=== PATIENT | female | born 1940 | race Caucasian/White ===

== ENCOUNTER 2022-10-26 07:08 | Inpatient (IN) | payer OTHER, MEDICAID ==
[~2022-10-26] VITALS: Ht 144.8 cm; Wt 75.3 kg
[2022-10-26] MEDS ORDERED: GLIP5TER PO (07:41)
[2022-10-26] MEDS ORDERED: MECL-303 PO (07:41)
[2022-10-26] MEDS ORDERED: ONDA8TAB87 PO (07:41)
[2022-10-26] MEDS ORDERED: SITA50TA3 PO (07:41)
[2022-10-26] MEDS ORDERED: CHOL2400 PO (07:41)
[2022-10-26] MEDS ORDERED: HYDR12.51 PO (07:41)
[2022-10-26 07:42] VITALS: BP 177/57
--- NOTE | 2022-10-26 07:42 | NUR ---
82 y/o female biba from home for c/o nausea and vomiting. Per son, patient has not been eating the past two days and patient throws up everything she eats. At assessment, patient was actively throwing up. Patient reports back pain from chronic back issues. Paramedics gave 4 mg PO Zofran ODT. Blood sugar on the field was 338. Patient reports dizziness. Medical History: HTN, DM NKDA
--- NOTE | 2022-10-26 07:45 | NUR ---
Med rec complete.
--- NOTE | 2022-10-26 07:51 | NUR ---
Patient being evaluated by physician at bedside.
[2022-10-26] MEDS ORDERED: NACL 0.9% 1,000 ML IV ONE (08:00)
[2022-10-26] MEDS ORDERED: KETOROLAC 15 MG/ML VIAL IVP ONE (08:00)
[2022-10-26] MEDS ORDERED: ONDANSETRON 4 MG/2 ML VIAL IVP ONE (08:00)
--- NOTE | 2022-10-26 08:12 | NUR ---
Lab at bedside.
--- NOTE | 2022-10-26 08:23 | NUR ---
Patient was taken to CT via rsan antonio.
--- NOTE | 2022-10-26 08:35 | NUR ---
Patient returned from CT.
[2022-10-26 08:57] LABS: BASOPHILS % (AUTO) 0.2 % (0.0-2.0); HEMOGLOBIN 12.2 g/dL (12.0-16.0); LYMPHOCYTES # (AUTO) 0.2 K/uL (2.5-16.5); LYMPHOCYTES % (AUTO) 2.3 % (20.5-51.1); MEAN CORPUSCULAR HEMOGLOBIN 26 pg (27-31); MEAN CORPUSCULAR HGB CONC 33 g/dL (33-37); MEAN CORPUSCULAR VOLUME 78.4 fL (80-94); MONOCYTES # (AUTO) 0.5 K/uL (0.8-1.0); MONOCYTES % (AUTO) 5.8 % (1.7-9.3); NEUTROPHILS # (AUTO) 8.2 K/uL (1.8-7.7); NEUTROPHILS % (AUTO) 91.7 % (42.2-75.2); PLATELET COUNT (AUTO) 112 K/uL (140-450); RED BLOOD CELL COUNT(AUTO) 4.72 MIL/uL (4.20-5.40); RED CELL DISTRIBUTION WIDTH 14.6 % (11.6-13.7); WHITE BLOOD COUNT (AUTO) 8.9 K/uL (4.8-10.8)
[2022-10-26 09:34] LABS: ALBUMIN 3.1 g/dL (3.4-5.0); ANION GAP 16.3 (8-16); ASPARTATE AMINOTRANSFERASE 54 U/L (15-37); CARBON DIOXIDE 27.1 mmol/L (21-32); CHLORIDE 96 mmol/L (98-107); CREATININE 1.3 mg/dL (0.6-1.3); GLUCOSE 332 mg/dL (74-106); LIPASE 55 U/L (73-393); POTASSIUM 3.4 mmol/L (3.5-5.1); SODIUM SERUM 136 mmol/L (136-145); TOTAL BILIRUBIN 0.7 mg/dL (0.0-1.0); UREA NITROGEN, BLOOD 30 mg/dL (7-18)
[2022-10-26 10:00] LABS: PROTHROMBIN TIME 11.5 secs (10.8-13.4)
--- NOTE | 2022-10-26 10:12 | NUR ---
Urine sample obtained, walked to lab.
[2022-10-26 10:14] LABS: APPEARANCE,URINE CLEAR (CLEAR); BILIRUBIN,URINE 1+ (NEGATIVE); BLOOD, URINE 1+ (NEGATIVE); COLOR,URINE YELLOW (YELLOW); LEUKOCYTE ESTERASE ,URINE 2+ (NEGATIVE); NITRITE, URINE POSITIVE (NEGATIVE); UGLUCOSE 1+ (NEGATIVE)
[2022-10-26] MEDS ORDERED: cefTRIAXone 1,000 MG VIAL ONE (10:28)
[2022-10-26] MEDS ORDERED: MAGNESIUM OXIDE 400 MG TAB PO PRN (11:10)
[2022-10-26] MEDS ORDERED: ONDANSETRON 4 MG/2 ML VIAL IVP PRN (11:10)
[2022-10-26] MEDS ORDERED: METOCLOPRAMIDE 10 MG/2 ML INJ VIAL IVP PRN (11:10)
[2022-10-26] MEDS ORDERED: ZOLPIDEM 5 MG TAB PO PRN (11:10)
[2022-10-26] MEDS ORDERED: KCL 20 MEQ IN 100 mL PREMIX 200 ML IV PRN (11:10)
[2022-10-26] MEDS ORDERED: LORazepam 1 MG TAB PO PRN (11:10)
[2022-10-26] MEDS ORDERED: HYDROcodone/APAP 5/325 MG 1 TAB TAB PO PRN (11:10)
[2022-10-26] MEDS ORDERED: tiZANidine 4 MG TAB PO PRN (11:15)
--- NOTE | 2022-10-26 11:18 | NUR ---
Updated Vincenzo Shah, responsible green party of patients pending admission.
[2022-10-26] MEDS: NACL 0.9% 1,000 ML IV SCH (11:48)
[2022-10-26 11:59] LABS: CALCIUM OXALATE CRYSTALS,UR None Seen /HPF (None Seen); COARSE GRANULAR CASTS,URINE None Seen /LPF (None Seen); FINE GRANULAR CASTS,URINE None Seen /LPF (None Seen); HYALINE CASTS, URINE None Seen /LPF (None Seen); OTHER CASTS, URINE None Seen /LPF (None Seen); OTHER CRYSTALS,URINE None Seen /HPF (None Seen); RED BLOOD CELL CASTS,URINE None Seen /LPF (None Seen); TRICHOMONAS,URINE None Seen /HPF (None Seen); TRIPLE PHOSPHATE CRYSTAL,UR None Seen /HPF (None Seen); URIC ACID CRYSTALS,URINE None Seen /HPF (None Seen); URINE AMORPHOUS URATE None Seen /HPF (None Seen); WAXY CASTS,URINE None Seen /LPF (None Seen); YEAST,URINE None Seen /HPF (None Seen)
--- NOTE | 2022-10-26 13:47 | NUR ---
Patient is laying in bed, no signs of distress noted. Patient is sleeping. All needs met by staff.
--- NOTE | 2022-10-26 13:50 | NUR ---
PT ARRIVED IN THE UNIT V.S OBTAINED , PT ORIENTED TO THE HOSPITAL ENVIRONMENT, ASSESSMENT IS DONE PT STABLE NO SOB.[id number]
--- NOTE | 2022-10-26 14:09 | NUR ---
Patient will be admitted to care of Dr. James. Admited to M/S. Will go to room 124-A. Belongings list completed. Report to ERNIE Vigil.
--- NOTE | 2022-10-26 15:08 | NUR ---
PATIENT HAS BEEN SCREENED AND CATEGORIZED HIGH NUTRITION RISK. PATIENT WILL BE SEEN WITHIN 1-2 DAYS OF ADMISSION. 10/27/22-10/28/[address]
--- NOTE | 2022-10-26 15:41 | NUR ---
The patient's care was reviewed and supervised by [facility], RN.
[2022-10-26 16:27] VITALS: BP 131/54
[2022-10-26] MEDS: HYDROcodone/APAP 10/325 MG 1 TAB TAB PO PRN (17:26)
[2022-10-26] MEDS ORDERED: DEXTROSE 50% 50 ML SYR IVP PRN (17:35)
[2022-10-26] MEDS: INSULIN LISPRO SLIDING SCALE 100 UNITS/ML VIAL SUBQ PRN (17:40)
[2022-10-26] MEDS: POTASSIUM CHLORIDE 10 MEQ TABER PO PRN (18:56)
--- NOTE | 2022-10-26 19:30 | NUR ---
RECEIVED PT ENDORSEMENT FROM DAY SHIFT NURSE FOR CONTINUITY OF CARE. PT IS AWAKE, ALERT AND VERBALLY RESPONSIVE. PT IS ON STABLE CONDITION. IV SITE IS NORMAL AND IS ON RIGHT AC 20G, INTACT AND PATENT. INFUSING WELL IVF NORMAL SALINE AT 80 ML/HR.
--- NOTE | 2022-10-26 19:40 | NUR ---
gave report to the night nurse. pt awake says will eat dinner later. pain free , no sob.[email or web address]
--- NOTE | 2022-10-26 19:41 | NUR ---
gave report to the night nurse. pt awake watching tv.[email or web address]
[2022-10-26 20:00] VITALS: BP 132/56
[2022-10-26] MEDS: BLOOD GLUCOSE MONITORING 1 DEV DEV FS SCH (21:50)
--- NOTE | 2022-10-26 21:50 | NUR ---
BLOOD SUGAR CHECKED = 105, NO SLIDING SCALE COVERAGE. PT AWAKE, ALERT AND VERBALLY RESPONSIVE.
[2022-10-27] MEDS: NACL 0.9% 1,000 ML IV SCH ×2 (00:14→12:32)
[2022-10-27 04:00] VITALS: BP 112/94
[2022-10-27 05:29] LABS: BASOPHILS % (AUTO) 0.5 % (0.0-2.0); EOSINOPHILS % (AUTO) 0.2 % (0.0-4.0); HEMATOCRIT 33.1 % (36-48); LYMPHOCYTES # (AUTO) 0.5 K/uL (2.5-16.5); LYMPHOCYTES % (AUTO) 7.2 % (20.5-51.1); MEAN CORPUSCULAR HEMOGLOBIN 26 pg (27-31); MEAN CORPUSCULAR HGB CONC 33 g/dL (33-37); MEAN CORPUSCULAR VOLUME 79.3 fL (80-94); MONOCYTES # (AUTO) 0.6 K/uL (0.8-1.0); NEUTROPHILS # (AUTO) 5.9 K/uL (1.8-7.7); NEUTROPHILS % (AUTO) 83.1 % (42.2-75.2); PLATELET COUNT (AUTO) 97 K/uL (140-450); RED BLOOD CELL COUNT(AUTO) 4.17 MIL/uL (4.20-5.40); RED CELL DISTRIBUTION WIDTH 14.8 % (11.6-13.7); WHITE BLOOD COUNT (AUTO) 7.1 K/uL (4.8-10.8)
[2022-10-27 06:14] LABS: ANION GAP 13.2 (8-16); CARBON DIOXIDE 25.6 mmol/L (21-32); CHLORIDE 103 mmol/L (98-107); CREATININE 1.2 mg/dL (0.6-1.3); GLUCOSE 169 mg/dL (74-106); POTASSIUM 3.8 mmol/L (3.5-5.1); SODIUM SERUM 138 mmol/L (136-145); UREA NITROGEN, BLOOD 30 mg/dL (7-18)
[2022-10-27] MEDS: BLOOD GLUCOSE MONITORING 1 DEV DEV FS SCH ×4 (06:44→20:46)
--- NOTE | 2022-10-27 06:44 | NUR ---
BLOOD SUGAR CHECK = 161
[2022-10-27] MEDS: INSULIN LISPRO SLIDING SCALE 100 UNITS/ML VIAL SUBQ PRN ×3 (06:47→20:45)
--- NOTE | 2022-10-27 06:47 | NUR ---
ADMINISTERED 2 UNITS OF HUMALOG INSULIN FOR BLOOD SUGAR 161 PER SLIDING SCALE.
--- NOTE | 2022-10-27 07:12 | NUR ---
receive the patient from the maintenance mechanic 2nd shift savage Farrell in rm 124A with admitting diagnosis of dehydration , urinary tract infection . on continuos iv of normal saline at 80 mls/hr .on antibiotics therapy of ceftriaxone . will continue to monitor
[2022-10-27 08:00] VITALS: BP 153/68
[2022-10-27] MEDS ORDERED: ENOXAPARIN 40 MG/0.4 ML SYR SUBQ SCH (09:00)
[2022-10-27] MEDS: DOCUSATE SODIUM 100 MG GELCAP PO SCH (09:59)
[2022-10-27] MEDS: ENOXAPARIN 30 MG/0.3 ML SYR SUBQ SCH (10:01)
--- NOTE | 2022-10-27 11:34 | NUR ---
informed md Erika Jarrett magnesium level of 1.2 . order to replace the magnesium 2GM
--- NOTE | 2022-10-27 14:47 | NUR ---
10/27/22 RD INITIAL ASSESSMENT COMPLETED PLEASE REFER TO NUTRITION ASSESSMENT UNDER CARE ACTIVITY FOR ESTIMATED NUTRITIONAL NEEDS. 1. CONTINUE [facility] DIET TOLERATED 2. RD RECOMMENDS GLUCERNA BID TO HELP WITH PO INTAKE, THIS WILL PROVIDE 440 CALORIES AND [address] GR[address]. 3. [address] TO FOLLOW-UP 3-5 DAYS, MODERATE RISK BRYON K[address]
--- NOTE | 2022-10-27 15:28 | NUR ---
P.T. NOTES P.T. EVAL COMPLETED; REFER TO EVAL FOR DETAILS.
[2022-10-27 16:00] VITALS: BP 123/66
--- NOTE | 2022-10-27 18:46 | NUR ---
will endorse to maintenance technician 3rd shift rn for continuity of care . on antibiotics therapy for urinary tract infection still on normal saline at 80 to prevent dehydration ,
--- NOTE | 2022-10-27 19:30 | NUR ---
RECEIVED REPORT FROM DAY SHIFT RN FOR CONTINUITY OF CARE. PT IS AAOX4 AMERICAN SPEAKER. PT IS RESTING IN BED. NOT IN ANY DISTRESS. PT STATES SHE JUST WANTS TO SLEEP. PT HAS RIGHT AC 20 GAUGE. NS 80 CC/HR. WILL CONTINUE TO MONITOR THE PT.
[2022-10-27 20:00] VITALS: BP 120/56
--- NOTE | 2022-10-28 | NUR ---
PT WAS CLEANED AND CHANGED. TOLERATED IT WELL. NO COMPLAINS AT THIS TIME.
[2022-10-28] MEDS: NACL 0.9% 1,000 ML IV SCH ×3 (00:40→18:28)
[2022-10-28 04:00] VITALS: BP 135/61
[2022-10-28] MEDS: HYDROcodone/APAP 10/325 MG 1 TAB TAB PO PRN (05:08)
--- NOTE | 2022-10-28 05:08 | NUR ---
PT COMPLAINED OF LEFT HIP PAIN. 01/22. NORCO WAS GIVEN. NO OTHER COMPLAINS.
[2022-10-28 05:40] LABS: BASOPHILS % (AUTO) 0.6 % (0.0-2.0); HEMATOCRIT 30.4 % (36-48); HEMOGLOBIN 10.1 g/dL (12.0-16.0); LYMPHOCYTES # (AUTO) 0.8 K/uL (2.5-16.5); LYMPHOCYTES % (AUTO) 19.7 % (20.5-51.1); MEAN CORPUSCULAR HEMOGLOBIN 26 pg (27-31); MEAN CORPUSCULAR HGB CONC 33 g/dL (33-37); MEAN CORPUSCULAR VOLUME 78.9 fL (80-94); MONOCYTES # (AUTO) 0.5 K/uL (0.8-1.0); MONOCYTES % (AUTO) 12.7 % (1.7-9.3); NEUTROPHILS # (AUTO) 2.8 K/uL (1.8-7.7); PLATELET COUNT (AUTO) 86 K/uL (140-450); RED BLOOD CELL COUNT(AUTO) 3.85 MIL/uL (4.20-5.40); RED CELL DISTRIBUTION WIDTH 14.5 % (11.6-13.7); WHITE BLOOD COUNT (AUTO) 4.3 K/uL (4.8-10.8)
[2022-10-28] MEDS: BLOOD GLUCOSE MONITORING 1 DEV DEV FS SCH ×4 (06:41→20:21)
--- NOTE | 2022-10-28 07:11 | NUR ---
ENDORSED PT TO DAY SHIFT RN FOR CONTINUITY OF CARE. PT IS STABLE.
--- NOTE | 2022-10-28 07:15 | NUR ---
RECEIVED REPORT FROM PROJECT ARCHITECT NURSE FOR CONTINUITY OF CARE. PT IS AWAKE, NO SIGN OF DISTRESS. CALL LIGHT WITHIN REACH.
[2022-10-28 08:00] VITALS: BP 134/54
[2022-10-28] MEDS: DOCUSATE SODIUM 100 MG GELCAP PO SCH (08:49)
[2022-10-28 08:56] LABS: ANION GAP 15.2 (8-16); CARBON DIOXIDE 22.2 mmol/L (21-32); CHLORIDE 105 mmol/L (98-107); CREATININE 0.9 mg/dL (0.6-1.3); GLUCOSE 119 mg/dL (74-106); POTASSIUM 3.4 mmol/L (3.5-5.1); SODIUM SERUM 139 mmol/L (136-145); UREA NITROGEN, BLOOD 20 mg/dL (7-18)
[2022-10-28] MEDS: ENOXAPARIN 30 MG/0.3 ML SYR SUBQ SCH ×2 (09:00→09:59)
--- NOTE | 2022-10-28 09:00 | NUR ---
HELD SCHEDULED LEVONOX, PATIENT'S PLT IS 86.
[2022-10-28] MEDS: INSULIN LISPRO SLIDING SCALE 100 UNITS/ML VIAL SUBQ PRN (12:06)
[2022-10-28 16:00] VITALS: BP 121/71
--- NOTE | 2022-10-28 19:12 | NUR ---
ENDORSED PT TO PAINT MAKER NURSE FOR CONTINUITY OF CARE. PT IS STABLE, NO SIGNS OF DISTRESS. CALL LIGHT WITHIN REACH.
--- NOTE | 2022-10-28 19:30 | NUR ---
RECEIVED REPORT FROM DAY SHIFT RN FOR CONTINUITY OF CARE. PT IS AAOX4 [place] SPEAKER. PT IS RESTING IN BED. NOT IN ANY DISTRESS. PT STATES SHE JUST WANTS TO SLEEP. PT HAS RIGHT AC 20 GAUGE. NS 80 CC/HR. PT DID NOT HAVE ANY DINNER. ENCOURAGE PT TO EAT SOME OF THE DINNER. PT DOES NOT WANT IT. OFFER PT SOME CRACKERS AND MILK AND PT SAID YES. WILL CONTINUE TO MONITOR THE PT.
[2022-10-28 20:00] VITALS: BP 146/69
--- NOTE | 2022-10-28 22:30 | NUR ---
PT WANTED TO BE CHANGED. PT WAS CHANGED. TOLERATED IT WELL. NO OTHER COMPLAINS. WILL CONTINUE TO MONITOR THE PT.
[2022-10-29 04:00] VITALS: BP 145/50
--- NOTE | 2022-10-29 04:00 | NUR ---
VITAL SIGNS TAKEN AND STABLE. PT HAS NOT BEEN ABLE TO SLEEP AT NIGHT. PT STATES SHE DOES NOT FEEL SLEEPY. PT HAS NO COMPLAINS AT THIS TIME. ALL NEEDS MET.
[2022-10-29 05:46] LABS: BASOPHILS % (AUTO) 0.4 % (0.0-2.0); EOSINOPHILS # (AUTO) 0.1 K/uL (0-0.4); EOSINOPHILS % (AUTO) 2.6 % (0.0-4.0); HEMATOCRIT 31.7 % (36-48); HEMOGLOBIN 10.5 g/dL (12.0-16.0); LYMPHOCYTES # (AUTO) 0.8 K/uL (2.5-16.5); LYMPHOCYTES % (AUTO) 18.9 % (20.5-51.1); MEAN CORPUSCULAR HEMOGLOBIN 26 pg (27-31); MEAN CORPUSCULAR HGB CONC 33 g/dL (33-37); MEAN CORPUSCULAR VOLUME 78.9 fL (80-94); MONOCYTES # (AUTO) 0.4 K/uL (0.8-1.0); MONOCYTES % (AUTO) 10.1 % (1.7-9.3); NEUTROPHILS # (AUTO) 2.9 K/uL (1.8-7.7); PLATELET COUNT (AUTO) 95 K/uL (140-450); RED BLOOD CELL COUNT(AUTO) 4.02 MIL/uL (4.20-5.40); RED CELL DISTRIBUTION WIDTH 14.4 % (11.6-13.7); WHITE BLOOD COUNT (AUTO) 4.2 K/uL (4.8-10.8)
[2022-10-29 06:09] LABS: ANION GAP 14.2 (8-16); CARBON DIOXIDE 24.2 mmol/L (21-32); CHLORIDE 102 mmol/L (98-107); CREATININE 0.8 mg/dL (0.6-1.3); GLUCOSE 155 mg/dL (74-106); POTASSIUM 3.4 mmol/L (3.5-5.1); SODIUM SERUM 137 mmol/L (136-145); UREA NITROGEN, BLOOD 17 mg/dL (7-18)
[2022-10-29] MEDS: HYDROcodone/APAP 10/325 MG 1 TAB TAB PO PRN ×2 (06:19→17:25)
[2022-10-29] MEDS: NACL 0.9% 1,000 ML IV SCH (06:22)
[2022-10-29] MEDS: BLOOD GLUCOSE MONITORING 1 DEV DEV FS SCH ×4 (06:39→21:33)
--- NOTE | 2022-10-29 07:13 | NUR ---
ENDORSED PT TO DAY SHIFT NURSE FOR CONTINUITY OF CARE. PT IS STABLE.
--- NOTE | 2022-10-29 07:14 | NUR ---
RECEIVED REPORT FROM NUCLEAR WASTE MANAGEMENT ENGINEER NURSE FOR CONTINUITY OF CARE. PT IS ASLEEP, AWAKEN BY NAME. CALL LIGHT WITHIN REACH.
[2022-10-29 08:00] VITALS: BP 153/71
[2022-10-29] MEDS: ENOXAPARIN 30 MG/0.3 ML SYR SUBQ SCH (09:00)
[2022-10-29] MEDS: DOCUSATE SODIUM 100 MG GELCAP PO SCH (09:01)
[2022-10-29] MEDS: INSULIN LISPRO SLIDING SCALE 100 UNITS/ML VIAL SUBQ PRN ×2 (12:45→17:08)
[2022-10-29 16:00] VITALS: BP 156/76
[2022-10-29] MEDS: POTASSIUM CHLORIDE 10 MEQ TABER PO PRN (17:26)
[2022-10-29] MEDS: MAG SULF 2000 MG/WATER PREMIX 50 ML IV PRN (17:28)
--- NOTE | 2022-10-29 19:13 | NUR ---
ENDORSED TO CAMPUS RECEPTIONIST NURSE FOR CONTINUITY OF CARE. PT IS STABLE. CALL LIGHT WITHIN REACH.
--- NOTE | 2022-10-29 19:30 | NUR ---
RECEIVED REPORT FROM DAY SHIFT RN FOR CONTINUITY OF CARE. PT IS AAOX4 SCOTTISH SPEAKER. PT IS SITTING BY BEDSIDE. NOT IN ANY DISTRESS. PT DRINKING THE ENSURE. PT HAS RIGHT HAND 22 GAUGE. NS 80 CC/HR. POC DISCUSSED. WILL CONTINUE TO MONITOR THE PT.
[2022-10-29 20:00] VITALS: BP 154/80
--- NOTE | 2022-10-29 22:20 | NUR ---
PT WAS ASSISTED TO COMMODE WITHOUT ANY PROBLEMS AND HELPED BACK TO BED. NO OTHER COMPLAINS FROM PT.
[2022-10-30] MEDS: NACL 0.9% 1,000 ML IV SCH ×2 (00:35→15:19)
[2022-10-30] MEDS: ACETAMINOPHEN 325 MG TAB PO PRN ×2 (01:28→14:05)
--- NOTE | 2022-10-30 01:28 | NUR ---
PT COMPLAINED OF TYLENOL. TYLENOL WAS GIVEN. NO OTHER COMPLAINS. WILL CONTINUE TO MONITOR HE PT.
[2022-10-30 04:00] VITALS: BP 146/55
--- NOTE | 2022-10-30 04:02 | NUR ---
VITAL SIGNS TAKEN AND STABLE. NO COMPLAINS FROM PT. DENIES ANY PAIN. WILL CONTINUE TO MONITOR.
[2022-10-30 06:58] LABS: BASOPHILS % (AUTO) 0.8 % (0.0-2.0); EOSINOPHILS # (AUTO) 0.1 K/uL (0-0.4); EOSINOPHILS % (AUTO) 3.8 % (0.0-4.0); HEMATOCRIT 29.2 % (36-48); HEMOGLOBIN 9.7 g/dL (12.0-16.0); LYMPHOCYTES # (AUTO) 0.9 K/uL (2.5-16.5); LYMPHOCYTES % (AUTO) 25.8 % (20.5-51.1); MEAN CORPUSCULAR HEMOGLOBIN 26 pg (27-31); MEAN CORPUSCULAR HGB CONC 33 g/dL (33-37); MEAN CORPUSCULAR VOLUME 78.8 fL (80-94); MONOCYTES # (AUTO) 0.3 K/uL (0.8-1.0); MONOCYTES % (AUTO) 9.2 % (1.7-9.3); NEUTROPHILS # (AUTO) 2.1 K/uL (1.8-7.7); NEUTROPHILS % (AUTO) 60.4 % (42.2-75.2); PLATELET COUNT (AUTO) 98 K/uL (140-450); RED BLOOD CELL COUNT(AUTO) 3.71 MIL/uL (4.20-5.40); RED CELL DISTRIBUTION WIDTH 14.6 % (11.6-13.7); WHITE BLOOD COUNT (AUTO) 3.5 K/uL (4.8-10.8)
--- NOTE | 2022-10-30 07:17 | NUR ---
ENDORSED PT TO DAY SHIFT RN FOR CONTINUITY OF CARE. PT IS STABLE.
[2022-10-30 07:29] LABS: ANION GAP 12.3 (8-16); CARBON DIOXIDE 23.5 mmol/L (21-32); CHLORIDE 109 mmol/L (98-107); CREATININE 0.7 mg/dL (0.6-1.3); GLUCOSE 156 mg/dL (74-106); POTASSIUM 3.8 mmol/L (3.5-5.1); SODIUM SERUM 141 mmol/L (136-145); UREA NITROGEN, BLOOD 15 mg/dL (7-18)
[2022-10-30 08:00] VITALS: BP 165/56
[2022-10-30] MEDS: BLOOD GLUCOSE MONITORING 1 DEV DEV FS SCH ×4 (08:25→20:58)
[2022-10-30] MEDS: INSULIN LISPRO SLIDING SCALE 100 UNITS/ML VIAL SUBQ PRN ×4 (08:26→21:04)
[2022-10-30] MEDS: ENOXAPARIN 30 MG/0.3 ML SYR SUBQ SCH (09:00)
[2022-10-30] MEDS ORDERED: CEPH-588 PO (09:02)
[2022-10-30] MEDS: DOCUSATE SODIUM 100 MG GELCAP PO SCH (09:25)
[2022-10-30 13:17] VITALS: BP 165/56
[2022-10-30 16:00] VITALS: BP 136/61
--- NOTE | 2022-10-30 19:44 | NUR ---
ENDORSE PATIENT IN STABLE CONDITION TO PM SHIFT NURSE WHILE PIV NS INFUSING @80ML/HR VIA R. HAND. PATIENT HAS DISCHARGE HOME ORDER BUT STILL PENDING FOR MAYBE HOME-HEALTH PT ARRANGEMENT
--- NOTE | 2022-10-30 20:00 | NUR ---
ROUNDS , REMINDS PT THE USE OF CALL LIGHT WHEN SHE NEEDED HELP - EXPLAINATION OF USE OF CALL LIGHT GIVEN VIA BELIZE[place] VIDEO MACHINE BOSS , PT VERBALIZES UNDERSTANDING .
--- NOTE | 2022-10-31 | NUR ---
ROUNDS , NO S/SX OF ACUTE DISTRESS NOTED , WILL PROVIDE WARM BLANKET , WILL CONT. TO MONITOR .
[2022-10-31 04:00] VITALS: BP 133/80
--- NOTE | 2022-10-31 05:50 | NUR ---
C/O LEGS PAIN - RATES THE PAIN 3/10 - WILL MEDICATE .
[2022-10-31] MEDS: ACETAMINOPHEN 325 MG TAB PO PRN ×2 (05:55→18:43)
[2022-10-31 06:02] LABS: ANION GAP 12.3 (8-16); CARBON DIOXIDE 23.6 mmol/L (21-32); CHLORIDE 109 mmol/L (98-107); CREATININE 0.7 mg/dL (0.6-1.3); GLUCOSE 166 mg/dL (74-106); POTASSIUM 3.9 mmol/L (3.5-5.1); SODIUM SERUM 141 mmol/L (136-145); UREA NITROGEN, BLOOD 12 mg/dL (7-18)
[2022-10-31] MEDS: NACL 0.9% 1,000 ML IV SCH ×2 (06:06→17:12)
[2022-10-31 06:10] LABS: BASOPHILS % (AUTO) 0.3 % (0.0-2.0); EOSINOPHILS # (AUTO) 0.1 K/uL (0-0.4); EOSINOPHILS % (AUTO) 3.1 % (0.0-4.0); HEMATOCRIT 30.2 % (36-48); LYMPHOCYTES % (AUTO) 23.3 % (20.5-51.1); MEAN CORPUSCULAR HEMOGLOBIN 26 pg (27-31); MEAN CORPUSCULAR HGB CONC 33 g/dL (33-37); MEAN CORPUSCULAR VOLUME 79.1 fL (80-94); MONOCYTES # (AUTO) 0.3 K/uL (0.8-1.0); MONOCYTES % (AUTO) 6.5 % (1.7-9.3); NEUTROPHILS # (AUTO) 2.9 K/uL (1.8-7.7); NEUTROPHILS % (AUTO) 66.8 % (42.2-75.2); PLATELET COUNT (AUTO) 120 K/uL (140-450); RED BLOOD CELL COUNT(AUTO) 3.81 MIL/uL (4.20-5.40); RED CELL DISTRIBUTION WIDTH 14.4 % (11.6-13.7); WHITE BLOOD COUNT (AUTO) 4.4 K/uL (4.8-10.8)
[2022-10-31] MEDS: BLOOD GLUCOSE MONITORING 1 DEV DEV FS SCH ×4 (06:58→21:00)
--- NOTE | 2022-10-31 07:33 | NUR ---
ENDORSED PT FOR CONT. OF CARE .
[2022-10-31 08:00] VITALS: BP 158/72
[2022-10-31] MEDS: DOCUSATE SODIUM 100 MG GELCAP PO SCH (09:00)
[2022-10-31] MEDS: ENOXAPARIN 30 MG/0.3 ML SYR SUBQ SCH (09:01)
[2022-10-31] MEDS: MAG SULF 2000 MG/WATER PREMIX 50 ML IV PRN (09:03)
[2022-10-31] MEDS ORDERED: ERTAPENEM SODIUM 1,000 MG in NACL 0.9% 50 ML IV SCH (11:00)
[2022-10-31] MEDS: INSULIN LISPRO SLIDING SCALE 100 UNITS/ML VIAL SUBQ PRN ×2 (12:22→17:09)
--- NOTE | 2022-10-31 13:32 | NUR ---
PHYSICAL THERAPY CO-SIGN The Physical Therapy Progress Notes documented by Lead Developer have been reviewed. Reviewed/Co-Signed by: Kathleen Doss PT Documentation Done by:JUAN MANUEL ELDRIDGE PHOTOVOLTAIC INSTALLER Addendum: 10/31/22 at 1332 by Kathleen Doss PT Amended: Links added.
--- NOTE | 2022-10-31 14:57 | NUR ---
10/31/22 RD FOLLOW UP COMPLETED PLEASE REFER TO NUTRITION ASSESSMENT UNDER CARE ACTIVITY FOR ESTIMATED NUTRITIONAL NEEDS. 1. RD RECOMMENDS CONTINUE CCHO DIET 60GMS TOLERATED. 2. RD RECOMMENDS CONTINUE WITH GLUCERNA BID WHICH WILL PROVIDE 440 CALORIES AND 20 GRAMS OF PROTEIN. 3. RD TO FOLLOW-UP 3-5 DAYS, MODERATE RISK BRYON K[address]
[2022-10-31] MEDS ORDERED: ERTA1VIA2 IVP (15:26)
[2022-10-31 16:00] VITALS: BP 156/81
--- NOTE | 2022-10-31 17:17 | NUR ---
RECEIVED ORDER FOR PATIENT TO GO TO SNF FOR PT AND IV ABX. FAXED ALL PAPERWORK TO [facility] AND THE FOLLOWING FACILITIES: [facility], [facility], [facility], [facility], [facility] GOT A CALL FROM VALERIE AT [facility] WHO IS ACCEPTING PATIENT. [facility] LOCATED AT [address] [address]. PATIENT WILL BE GOING TO ROOM 9A UNDER DR MOSQUERA. TRANSPORTATION WAS ARRANGED WITH INSURANCE WITH CALL THE CARE WITH A ETA THAT WILL BE GIVEN TO THE NURSING STATION VIA PHONE CALL. CHARGE NURSE CHERYL AND SON AWARE OF THE ABOVE INFORMATION. SNF AUTH WAS FAXED TO [facility].
--- NOTE | 2022-10-31 18:18 | NUR ---
DISCHARGE PATIENT IN STABLE CONDITION TO [facility] ROOM 9A UNDER CARE OF DR. MOSQUERA. REPORT GIVE TO HATTIE, IV ACCESS KEEP FOR IV ANTIBIOTIC THERAPY, DISCHARGE INSTRUCTION GIVE TO SON, DISCHARGE CONSENT SIGN. [facility] WILL CONTINUE CARE PATIENT REHAB/CARE. Addendum: 10/31/22 at 1958 by Sandra Colon RN ENDORSE PATIENT IN STABLE CONDITION TO PM SHIFT THAT PATIENT'S NEXT KIN, SON, AWARE PATIENT IS TRANSFER, IV ACCESS NEED KEEP FOR CONTINUE IV ANTIBIOTIC THERAPY. WRIST BAND REMOVED; TRANSPORT, [facility] WILL INFLATED BALL MOLDER PATIENT FOR [facility] AT 2330. COPY OF CHART GIVE TO PM SHIFT NURSE.
--- NOTE | 2022-10-31 19:30 | NUR ---
per ERNIE JONES SHE ALREADY GAVE A REPORT TO HATTIE OF [facility] , PT'S ROOM IS 9A , AND THE PT IS TO BE DISCHARGE W/ IV NEEDLE BECAUSE OF CONT. OF IV MED . THE PT. IS TO BE PICKED UP BY [facility] BY 1130PM MARGOT , PER ERNIE JONES SHE ALREADY INSTRUCTED THE DISCHARGE INSTRUCTION TO THE PT AND HER SON AND GIVE IT TO THEM , PACKET SIGNED BY PT'S SON . I WILL HAND THE DISCHARGE PACKET FOR FACILITY . WILL CONT. TO MONITOR THE PT .
--- NOTE | 2022-10-31 20:25 | NUR ---
PT HITS THE CALL LIGHT , MY CHARGE NURSE BRISSA ANSWER THE CALL LIGHT AND HE SEND ME TO THE PT . WHEN I ENTERING THE PT'S ROOM , PT KEEP ASKING ME WHERE IS CARTER ? , WHERE IS CARTER ? SHE KEEPS ASKING ME ABOUT CARTER , FOR BETTER COMMUNICATION - WILL USE VIDEO MANAGER BUSINESS OPERATIONS BECAUSE PT IS MORE SPEAKING IN [place] .
--- NOTE | 2022-10-31 21:30 | NUR ---
FULLY SOAKED DIAPER , WILL CLEAN UP
--- NOTE | 2022-10-31 21:57 | NUR ---
REFUSED BLOOD SUGAR CHECK
--- NOTE | 2022-10-31 23:34 | NUR ---
GOT A CALL FROM MAGGIE OF [facility], STATED THAT THE CURRENT TRANSPORT ASSIGNED TO PROBATION SUPERVISOR THE PT DOESN'T HAVE PRIVILEGE FOR [facility], STATED HE WILL RESCHEDULE ANOTHER TRANSPORT FOR TOMORROW 11/01/22 AT 1000, ERNIE PEREZ MADE AWARE.
[2022-11-01 04:00] VITALS: BP 133/82
--- NOTE | 2022-11-01 04:00 | NUR ---
[facility] . WILL CONT. TO MONITOR
[2022-11-01] MEDS: NACL 0.9% 1,000 ML IV SCH (04:40)
--- NOTE | 2022-11-01 06:20 | NUR ---
PT IS STILL HERE TO BE DEDICATED DRIVER BY 10 AM - INFORMED PT.'S SON .
[2022-11-01] MEDS: BLOOD GLUCOSE MONITORING 1 DEV DEV FS SCH (06:45)
--- NOTE | 2022-11-01 07:15 | NUR ---
ASSUMED CONTINUITY OF CARE. INITIAL ASSESSMENT DONE. KEEP [id number] ON BED. CONTACT ISOLATION PRECAUTION AND FALL PRECAUTION APPLIED. CALL LIGHT WITHIN REACH.
--- NOTE | 2022-11-01 07:39 | NUR ---
PT AWAKE , ENDORSED FOR CONT. OF CARE
--- NOTE | 2022-11-01 07:59 | NUR ---
CALLED PT. OLIVER LOCKWOOD AT AND INFORMED OF PT. D/C TO [facility].
[2022-11-01 08:00] VITALS: BP 99/51
--- NOTE | 2022-11-01 09:25 | NUR ---
D/C TO [facility] VIA GURNEY WITH MEDICAL TRANSPORTER. IN STABLE CONDITION.
== END 2022-11-01 09:25 | DRG 641 ==
LOC: MED 07:08 → OBSVTOIN 11:13 → MMU 11:13 → MTU 11:13
PROVIDERS: ADMIT Internal Medicine; ATTEND Internal Medicine
DX: E86.0 Dehydration (principal); N39.0 Urinary tract infection, site not specified; E44.0 Moderate protein-calorie malnutrition; G89.29 Other chronic pain; M54.9 Dorsalgia, unspecified; Z20.822 Contact with and (suspected) exposure to COVID-19; D69.6 Thrombocytopenia, unspecified; R74.01 Elevation of levels of liver transaminase levels; Z79.899 Other long term (current) drug therapy; Z90.49 Acquired absence of other specified parts of digestive tract; Z68.35 Body mass index [BMI] 35.0-35.9, adult
CPT/HCPCS: 36415; 71045; 72100; 80048; 80053; 81001; 82550; 82553; 82948; 83605; 83690; 83735; 84484; 85025; 85610; 85730; 87040; 87081; 87086; 93005; 96361; 96365; 96375; 97110; 97112; 97116; 97530; 99285; J0696; J1335; J1650; J1815; J1885; J2405; J3475; J7060